=== PATIENT | female | born 1975 | race Caucasian/White ===

== ENCOUNTER → 2018-02-10 | Outpatient (CLI) | payer OTHER ==
--- NOTE | 2018-02-10 16:38 | DIAGNOSTIC IMAGING REPORT ---
SOFT TISS HEAD/NECK-THYROID CLINICAL HISTORY: 42 years-old Female with MULTIPLE THYROID NODULES. Follow-up study in a patient with multiple thyroid nodules COMPARISON: Thyroid ultrasound 09/20/2014 and ultrasound-guided biopsy 01/31/2015. TECHNIQUE: Multiple real time sonographic images of the thyroid were obtained accessing rossi scale appearance and color doppler flow. FINDINGS: MEASUREMENTS: Right lobe: 5.3 x 2.1 x 2.2 cm Left lobe: 5.4 x 2.2 x 2.5 cm Isthmus: 0.5 cm PARENCHYMA: The thyroid parenchymal echotexture is mildly heterogeneous throughout. NODULES: Multiple bilateral thyroid nodules redemonstrated. Solid nodule of the mid pole right thyroid with internal microcalcifications measures 1.8 x 2.9 x 1.5 cm, previously 2.8 x 1.9 x 1.4 cm. Solid mildly hypoechoic nodule inferior right thyroid measures up to 0.5 cm in greatest dimension, low suspicion and unchanged. Mid to lower pole solid nodule about the lower pole left thyroid with internal cystic spaces measures 2.6 x 3.2 x 1.9 cm, previously 2.3 x 3.3 x 2.0 cm. Cyst of the upper pole left thyroid measures 5 mm. No new or enlarging thyroid nodules identified. IMPRESSION: Multinodular goiter with unchanged size and appearance of the bilateral thyroid nodules, the largest of which were previously biopsied on 01/31/2015. The above report was generated using voice recognition software. It may contain grammatical, syntax or spelling errors. Electronically signed by: Nakul Roy M.D. 02/10/2018 4:37 PM Dictated Date/Time: 02/10/2018 4:32 PM
== END | disposition home or self-care (01) ==
LOC: C.ULTR 15:49
PROVIDERS: ATTEND Internal Medicine Endocrinology, Diabetes & Metabolism
DX: E04.2 Nontoxic multinodular goiter (principal); E06.3 Autoimmune thyroiditis